=== PATIENT | male | born 1950 | race African-American/Black ===

== ENCOUNTER 2017-03-16 08:11 | Emergency (ER) | payer BC, MEDICARE, OTHER | END 2017-03-16 09:23 | disposition home or self-care (01) | LOC: ER 08:11 | DX: S39.012A Strain of muscle, fascia and tendon of lower back, initial encounter (principal); S86.012A Strain of left Achilles tendon, initial encounter; I10 Essential (primary) hypertension; E11.9 Type 2 diabetes mellitus without complications; X58.XXXA Exposure to other specified factors, initial encounter | CPT/HCPCS: 73560-LT; 99283 ==